=== PATIENT | male | born 1955 | race American Indian/Alaskan Native ===

== ENCOUNTER 2018-09-05 08:40 | Day surgery (SDC) | payer BC ==
[~2018-09-05 08:40] MED LIST: OMNIPAQUE 300 MG/50 ML (CATH LAB) IV ONE
[2018-09-05] MEDS ORDERED: ANCEF/STERILE WATER 2 GM/20 ML 2 GM/20 ML SYRINGE IV NR (09:50)
--- NOTE | 2018-09-05 10:51 | Anesthesia Consultation ---
Anesthesia Consult and Med Hx Date of service: 09/05/18 - Airway Anesthetic Teeth Evaluation: Poor (some missing teeth) ROM Head & Neck: Adequate Mental/Hyoid Distance: Adequate Mallampati Class: Class II Intubation Access Assessment: Probably Good - Pre-Operative Health Status ASA Pre-Surgery Classification: ASA2 Proposed Anesthetic Plan: General - Pulmonary Hx Smoking: No Hx Sleep Apnea: No (LAUREANO PRE SCREEN HIGH RISK.) - Cardiovascular System Hx Hypertension: Yes (X 10 YRS) Hx Coronary Artery Disease: No (high cholesterol) - Endocrine Hx Renal Disease: Yes (s/p removal benign renal mass ) - Other Systems Hx Cancer: No
[2018-09-05] MEDS ORDERED: PEPCID IV NR (11:00)
[2018-09-05] MEDS ORDERED: LACTATED RINGERS 1,000 ML IV SCH (11:00)
[2018-09-05] MEDS: VERSED IV NR ×2 (11:57→15:05)
[2018-09-05] MEDS ORDERED: DIPRIVAN 10 MG/ML IV ONE ×2 (14:54→16:12)
[2018-09-05] MEDS ORDERED: XYLOCAINE CARDIAC IV ONE (14:54)
[2018-09-05] MEDS ORDERED: ZOFRAN ONE (14:54)
[2018-09-05] MEDS ORDERED: SUBLIMAZE ONE ×2 (14:55→16:16)
[2018-09-05] MEDS ORDERED: OMNIPAQUE 300 MG/50 ML (CATH LAB) IV ONE (15:38)
[2018-09-05] MEDS ORDERED: GENTAMICIN IV ONE (15:46)
[2018-09-05] MEDS ORDERED: NS IV ONE (15:46)
[2018-09-05] MEDS ORDERED: LASIX ONE (16:27)
--- NOTE | 2018-09-05 16:35 | Post Operative Note ---
Date of procedure: 09/05/18 Pre-op diagnosis: stoen inc psa Post-op diagnosis: same Findings: large gland stoen L ureter Procedure: cysto ureteroscopy laser prostate us bx Anesthesia: GETA Surgeon: NANI BOWEN Estimated blood loss: minimal Pathology: list (stone prosttate) Specimen disposition: to lab, given to patient/family Condition: stable Disposition: PACU
--- NOTE | 2018-09-05 16:37 | Discharge Summary ---
Short Stay Discharge Plan Activity: other (no straining ) Weight Bearing Status: Full Weight Bearing Diet: low fat, low cholesterol, low salt Special Instructions: other (inc fluids ) Durable Medical Equipment Needed Upon Discharge: other (home with fan ) Follow up with: SUSAN HOLLAND MD [Primary Care Provider] - 7 Days NANI BOWEN MD [Staff Physician] - 7 Days
--- NOTE | 2018-09-05 17:19 | Operative Report ---
PREOPERATIVE DIAGNOSES: Increased PSA, lesion in prostate, right lobe, left ureteral stone. POSTOPERATIVE DIAGNOSES: Increased PSA, lesion in prostate, right lobe, left ureteral stone. PROCEDURE: Cystoscopy, left ureteral balloon dilatation, laser of stone, stone extraction, double-J stent. SURGEON: Jeronimo Gonsales MD ANESTHESIA: General. FINDINGS: This is a gentleman with large prostate, increased PSA velocity and PSA, lesion on the prostate with a left ureteral stone, now presents for treatment. DESCRIPTION OF PROCEDURE: The patient was brought to the operating room and placed on the operating table. Following induction of anesthesia, prepped and draped in usual sterile fashion in lithotomy position. Cystourethroscopy showed a very large prostate with large middle lobe. Retrograde showed severe J hooking. Eventually, we got a wire to straighten out the ureter. Balloon dilatation was carried out. The stone was bigger than 3.5 mm and had to be lasered. It could not be extracted with the three 3-prong grasper. We broke it into 2-3 pieces and extracted the largest piece with a Rivera basket. At this point, a double-J 724 coiled in the kidney and bladder. The middle lobe was quite large, made it difficult as well. The ultrasound was placed and measured about 73-75 gram prostate. It was hard to see the middle lobe. The biopsy is mostly on the right side, 5 on the right, 4 on the left were carried out. The patient tolerated the procedure well and brought to recovery in stable condition. We placed a little rectal pack. There was really minimal bleeding, just to make sure there is no significant bleeding. Urine was minimally tinged. He was brought to recovery in stable condition with a 20-[place] Coude catheter. JOB# [id number] DAVID/VINITA
--- NOTE | 2018-09-05 17:21 | Ultrasound Report ---
FINAL REPORT EXAM: ULTRASOUND TRANSRECTAL HISTORY: ELEVATED PSA/ PROSTATE BX TECHNIQUE: Limited transrectal ultrasound of the prostate PRIORS: None. FINDINGS: Overall, the prostate gland is enlarged in size measuring 6.6 x 4.4 x 4.9 cm. This corresponds to an overall volume of 73.5 cc. Prostate echogenicity is heterogeneous Evidence for biopsy tract is noted. IMPRESSION: Enlarged heterogeneous prostate . Biopsy was performed.
--- NOTE | 2018-09-05 18:03 | Anesthesia Day of Surgery ---
Anesthesia Day of Surgery - Day of Surgery Patient Examined: Yes Patient H&P Reviewed: Yes Patient is NPO: Yes
--- NOTE | 2018-09-05 18:03 | Post Anesthesia Evaluation ---
- Post Anesthesia Evaluation Patient Participated: Yes Airway Patent: Yes Stable Respiratory Function: Yes Nausea/Vomiting: No Temp > 96.8F: Yes Pain Manageable: Yes Adequeate Hydration: Yes Anesthesia Complications: No
[2018-09-05 19:53] VITALS: BP 132/74
--- NOTE | 2018-09-06 07:36 | Fluoroscopy Report ---
FLUOROSCOPY RETROGRADE UROGRAPHY: FLUOROSCOPY URETER/NEPHROSTOMY DILATATION LEFT: HISTORY: Left ureteral stone. FINDINGS: Fluoroscopy was provided by radiology during retrograde urography by the urologist. 7 fluoroscopic images were captured. The images demonstrate a small filling defect in the distal left ureter consistent with a stone. The stone was removed with the use of a laser. Left ureteroscopy was performed per the operative notes. Subsequent images demonstrate balloon dilatation of the distal left ureter and placement of a left ureteral stent with good drainage of the left collecting system. No images of the right pyelogram were saved. Ultrasound guided transrectal prostate biopsy was also performed to further procedural note. IMPRESSION: Left ureteral stone removal. Left ureteral stent placement.
== END 2018-09-05 08:41 | disposition home or self-care (01) ==
LOC: OR 08:40
PROVIDERS: ATTEND Urology
DX: N20.1 Calculus of ureter (principal); N40.0 Benign prostatic hyperplasia without lower urinary tract symptoms; E78.00 Pure hypercholesterolemia, unspecified; I10 Essential (primary) hypertension; E89.2 Postprocedural hypoparathyroidism; Z79.899 Other long term (current) drug therapy; Z79.01 Long term (current) use of anticoagulants
CPT/HCPCS: 52356; 55700; 74420; 74485; 76872; 88305; 88312; 88342; C1726; C1758; C2617; J0690; J1580; J1940; J2001; J2250; J2405; J2704; J3010; J7120; Q9967